=== PATIENT | male | born 1980 | race Caucasian/White ===

== ENCOUNTER 2020-05-22 10:29 | Emergency (ER) | payer OTHER ==
[~2020-05-22] VITALS: Ht 182.9 cm; Wt 98.4 kg
[~2020-05-22 10:29] MED LIST: KETO10TA2 PO; ORPH100T PO
[2020-05-22] MEDS ORDERED: ORPHENADRINE C100 MG PO (15:24)
[2020-05-22] MEDS ORDERED: KETO10TA2 PO (15:24)
== END 2020-05-22 16:17 | disposition home or self-care (01) ==
LOC: ER 10:29
DX: M62.830 Muscle spasm of back (principal)